=== PATIENT | male | born 1995 | race Caucasian/White ===

== ENCOUNTER 2018-02-13 08:31 | Emergency (ER) | payer BC, OTHER ==
[2018-02-13 11:13] LABS: Bilirubin Small (Negative); Blood, Urine Trace (Negative); Glucose, Urine (Dipstick) Negative (Negative); Leukocyte Negative (Negative); Nitrite Negative (Negative); Protein, Urine (Dipstick) 30 mg/dL (Neg-Trace); Urobilinogen 0.2 mg/dL (0.2-1.0)
[2018-02-13 11:14] LABS: Clarity Clear (Clear)
[2018-02-13 11:15] LABS: Specific Gravity, Urine 1.028 (1.002-1.036)
--- NOTE | 2018-02-13 11:23 | ULT ---
TESTICULAR ULTRASOUND WITH COLOR AND SPECTRAL DOPPLER IMAGING: HISTORY: A 23-year-old male with a history of left testicular pain with some swelling and insect bite m[place]. FINDINGS: Right testis measures 4.6 x 2.1 x 3.0 cm. Left testis measures 4.5 x 2.3 x 3.0 cm. Small right epididymal cyst 0.5 x 0.7 x 0.8 cm. No evidence for hydrocele. No intratesticular mass. VASCULAR DUPLEX WITH COLOR AND SPECTRAL DOPPLER IMAGING: Arterial inflow and venous outflow noted to both testes. No evidence for testicular torsion. IMPRESSION: Right epididymal cyst. No hydrocele or intratesticular mass or testicular torsion or other significa nt acute process. POS: OFF
[2018-02-13 11:33] LABS: Bacteria/HPF None Seen HPF (None Seen); RBC/HPF 0-3 HPF (0-3); Squamous Epithelial 0-3 HPF (0-3); WBC/HPF 0-3 HPF (0-3)
[2018-02-13 11:34] LABS: Hyaline Casts/LPF 0-3 HYALINE CAST LPF (0-3 Hyaline); Sperm/HPF 3+ HPF (None Seen)
[2018-02-14 11:35] LABS: Chlamydia by PCR Not Detected (NotDetected); GC by PCR Not Detected (NotDetected)
== END 2018-02-13 11:46 | disposition home or self-care (01) ==
LOC: ERS 08:31
DX: N50.812 Left testicular pain (principal)
CPT/HCPCS: 76870; 81003; 81015; 87491; 87591; 93976